=== PATIENT | male | born 1995 | race Caucasian/White ===

== ENCOUNTER 2022-05-18 14:24 | Emergency (ER) | payer BC ==
[~2022-05-18] VITALS: Ht 188 cm; Wt 117.9 kg
[~2022-05-18 14:24] MED LIST: AMOCLA400 PO; CEPH250SUA PO; CODACEE120 PO; FAMO20 PO; IBUP200; MAGCIT300 PO; OTC COUGH SYRUP
== END 2022-05-18 15:29 | disposition home or self-care (01) ==
LOC: ER 14:24
DX: Z23 Encounter for immunization (principal); Z20.3 Contact with and (suspected) exposure to rabies
CPT/HCPCS: 90471; 99282-25

== ENCOUNTER 2022-05-21 06:46 | Emergency (ER) | payer BC ==
[~2022-05-21] VITALS: Ht 188 cm; Wt 117.9 kg
== END 2022-05-21 07:31 | disposition home or self-care (01) ==
LOC: ER 06:46
DX: Z29.14 Encounter for prophylactic rabies immune globulin (principal)
CPT/HCPCS: 90471

== ENCOUNTER 2022-05-25 09:05 | Emergency (ER) | payer BC ==
[~2022-05-25] VITALS: Ht 188 cm; Wt 117.9 kg
== END 2022-05-25 10:31 | disposition home or self-care (01) ==
LOC: ER 09:05
DX: Z20.3 Contact with and (suspected) exposure to rabies (principal); Z23 Encounter for immunization
CPT/HCPCS: 90471